=== PATIENT | female | born 1960 | race Caucasian/White ===

== ENCOUNTER 2018-02-14 10:11 | Emergency (ER) | payer OTHER ==
[2018-02-14 10:50] LABS: ADD MAN DIFF? NO
[2018-02-14 10:51] LABS: WHITE BLOOD COUNT 8.9 10^3/ul (4.8-10.8)
[2018-02-14 10:51] LABS: BASOPHILS % 0.3 % (0.0-2.0); EOSINOPHILS # 0.1 10^3/ul (0.0-0.5); EOSINOPHILS % 0.7 % (0.0-7.0); HEMATOCRIT 33.4 % (37.0-47.0); HEMOGLOBIN 10.5 g/dl (12.0-16.0); LYMPHOCYTES # 1.6 10^3/ul (0.8-2.9); MEAN CORPUSCULAR HEMOGLOBIN 27.1 pg (29.0-33.0); MEAN CORPUSCULAR HGB CONC 31.4 g/dl (32.0-37.0); MEAN CORPUSCULAR VOLUME 86.3 fl (82.0-101.0); MEAN PLATELET VOLUME 8.6 fl (7.4-10.4); MONOCYTE # 0.4 10^3/ul (0.3-0.9); MONOCYTES % 4.8 % (0.0-11.0); NEUTROPHIL # 6.6 10^3/ul (1.6-7.5); NEUTROPHILS % 74.1 % (39.0-77.0); PLATELET COUNT 422 10^3/UL (140-415); RED BLOOD COUNT 3.87 10^6/ul (4.20-5.40)
[2018-02-14] MEDS: SOD CHLORIDE 0.9% 1,000 ML IV (11:07)
[2018-02-14 11:08] LABS: ANION GAP 15 (8-16); BLOOD UREA NITROGEN 19 mg/dl (7-20); CALCIUM 8.8 mg/dl (8.4-10.2); CARBON DIOXIDE 29 mmol/L (21-31); CHLORIDE 100 mmol/L (97-110); CREATININE 1.22 mg/dl (0.44-1.00); GLUCOSE 319 mg/dl (70-220); MAGNESIUM 1.6 mg/dl (1.7-2.5); POTASSIUM 4.1 mmol/L (3.5-5.1); SODIUM 140 mmol/L (135-144)
[2018-02-14 11:30] LABS: MODE ROOM AIR; MetHgb Venous 0.2 %; Sample Type Blood venous; Site VENOUS LINE; Venous COHb 0 %; Venous Fraction OxyHgb 85.4 %; Venous Oxygen Sat 85.6 mmHG (55.0-75.0); Venous Total Hemglobin 11.3 g/dl
== END 2018-02-14 11:55 | disposition home or self-care (01) ==
LOC: E/R 10:11
DX: E11.65 Type 2 diabetes mellitus with hyperglycemia (principal); E11.22 Type 2 diabetes mellitus with diabetic chronic kidney disease; N18.9 Chronic kidney disease, unspecified; I50.9 Heart failure, unspecified; Z79.4 Long term (current) use of insulin
CPT/HCPCS: 36415; 80048; 82803; 82962; 83735; 84100; 85025; 99284-25

== ENCOUNTER 2019-01-03 14:19 | Emergency (ER) | payer MEDICARE, OTHER ==
[2019-01-03 16:55] LABS: URINE PH (Dip) POC 5.5 (5.0-8.5)
[2019-01-03 16:55] LABS: URINE BLOOD (Dip) POC Trace-intact (NEGATIVE); URINE KETONES (Dip) POC Negative (NEGATIVE); URINE LEUKOCYTE EST (Dip) POC Negative (NEGATIVE); URINE NITRITE (Dip) POC Negative (NEGATIVE); URINE TOTAL PROTEIN POC 2+ (NEGATIVE)
== END 2019-01-03 17:14 | disposition home or self-care (01) ==
LOC: FTE 17:14
DX: R30.0 Dysuria (principal); E11.9 Type 2 diabetes mellitus without complications; I11.0 Hypertensive heart disease with heart failure; I50.9 Heart failure, unspecified; Z76.0 Encounter for issue of repeat prescription; Z79.4 Long term (current) use of insulin
CPT/HCPCS: 81003; 82962; 99282

== ENCOUNTER 2019-03-24 12:47 | Inpatient (IN) | payer MEDICARE, OTHER ==
[2019-03-24 15:14] LABS: ADD MAN DIFF? NO
[2019-03-24 15:19] LABS: BASOPHILS % 0.1 % (0.0-2.0); EOSINOPHILS % 0.3 % (0.0-7.0); HEMATOCRIT 28.6 % (37.0-47.0); LYMPHOCYTES # 1.5 10^3/ul (0.8-2.9); LYMPHOCYTES % 12.4 % (15.0-51.0); MEAN CORPUSCULAR HEMOGLOBIN 25.6 pg (29.0-33.0); MEAN CORPUSCULAR HGB CONC 31.5 g/dl (32.0-37.0); MEAN CORPUSCULAR VOLUME 81.3 fl (82.0-101.0); MEAN PLATELET VOLUME 9.6 fl (7.4-10.4); MONOCYTE # 0.7 10^3/ul (0.3-0.9); MONOCYTES % 5.6 % (0.0-11.0); NEUTROPHIL # 9.6 10^3/ul (1.6-7.5); NEUTROPHILS % 80.9 % (39.0-77.0); PLATELET COUNT 278 10^3/UL (140-415); RED BLOOD COUNT 3.52 10^6/ul (4.20-5.40); RED CELL DISTRIBUTION WIDTH 13.5 % (11.5-14.5)
[2019-03-24 15:19] LABS: WHITE BLOOD COUNT 11.8 10^3/ul (4.8-10.8)
[2019-03-24] MEDS: CEFEPIME 2GM/50 ML (PMX) 50 ML IVPB (15:19)
[2019-03-24] MEDS: SODIUM CHLORIDE 0.9% 1L BAG IV* (15:19)
[2019-03-24] MEDS: ACETAMINOPHEN 325 MG TAB PO (15:19)
[2019-03-24] MEDS: morphine 4 MG/ML VIAL IV (15:21)
[2019-03-24] MEDS: ONDANSETRON 4 MG INJ IV (15:22)
[2019-03-24 15:37] LABS: INR 1.03; PROTIME 13.6 Sec (11.9-14.9); PT RATIO 1.1
[2019-03-24 15:43] LABS: ALANINE AMINOTRANSFERASE 14 IU/L (13-69); ALBUMIN 4.1 g/dl (3.3-4.9); ALBUMIN/GLOBULIN RATIO 1.13; ALKALINE PHOSPHATASE 57 IU/L (42-121); ANION GAP 10 (5-13); ASPARTATE AMINO TRANSFERASE 19 IU/L (15-46); BILIRUBIN,INDIRECT 0.3 mg/dl (0-1.1); BILIRUBIN,TOTAL 0.3 mg/dl (0.2-1.3); BLOOD UREA NITROGEN 21 mg/dl (7-20); CALCIUM 8.9 mg/dl (8.4-10.2); CARBON DIOXIDE 28 mmol/L (21-31); CHLORIDE 97 mmol/L (97-110); CREATININE 1.49 mg/dl (0.44-1.00); Estimated GFR 36 mL/min (>60); GLUCOSE 212 mg/dl (70-220); POTASSIUM 3.8 mmol/L (3.5-5.1); SODIUM 135 mmol/L (135-144); TOTAL PROTEIN 7.7 g/dl (6.1-8.1)
[2019-03-24] MEDS: VANCOMYCIN 1 GM (PMX) 250 ML IVPB (15:44)
[2019-03-24 15:52] LABS: TROPONIN-I < 0.012 ng/ml (0.000-0.120)
[2019-03-24] MEDS ORDERED: ACETAMINOPHEN 325 MG TAB PO (16:30)
[2019-03-24] MEDS ORDERED: ONDANSETRON 4 MG INJ IV ×2 (16:30→17:00)
[2019-03-24 16:51] LABS: ERYTHROCYTE SEDIMENTATION RATE 101 mm/Hr (0-30)
[2019-03-24] MEDS ORDERED: GLUCOSE GEL 15 GRAM TUBE PO ×2 (17:30)
[2019-03-24] MEDS ORDERED: VANCOMYCIN IV PER PHARMACY XX (17:30)
[2019-03-24] MEDS ORDERED: GLUCOSE GEL 15 GRAM TUBE BUCCAL (17:30)
[2019-03-24] MEDS ORDERED: DEXTROSE 50% 50 ML SYRINGE IV ×2 (17:30)
[2019-03-24] MEDS: ACCU-CHEK XX ×2 (17:30→21:47)
[2019-03-24] MEDS ORDERED: GLUCAGON 1 MG INJ IM (17:30)
[2019-03-24 17:44] LABS: LACTIC ACID 1.3 mmol/L (0.5-2.0)
[2019-03-24] MEDS: metFORMIN 500 MG TAB PO (17:47)
[2019-03-24] MEDS: INSULIN ASPART [NOVOLOG] 3 ML PEN SC ×3 (17:50→21:00)
[2019-03-24] MEDS ORDERED: INSULIN LISPRO 100 UNIT/ML VIAL SC (18:00)
[2019-03-24] MEDS: PIPER-TAZO 3.375 GM IV (PMX) 100 ML IVPB (18:21)
[2019-03-24] MEDS: HYDROCODONE/APAP (5/325) TAB PO (19:18)
[2019-03-24] MEDS: INSULIN GLARGINE [LANTus] (100 UNITS/ML) SYG SC (21:46)
[2019-03-24 21:51] LABS: LACTIC ACID 2.1 mmol/L (0.5-2.0)
[2019-03-24] MEDS: VANCOMYCIN 1 GM in 250 ML IVPB (22:18)
[2019-03-24] MEDS: MELATONIN 5 MG TABLET PO ×2 (22:21→23:47)
[2019-03-24] MEDS: ASCORBIC ACID 500 MG TAB PO ×2 (22:21→23:47)
[2019-03-24] MEDS: GABAPENTIN 300 MG CAP PO ×2 (22:22→23:47)
[2019-03-24] MEDS: SERTRALINE 50 MG TAB PO ×2 (22:22→23:30)
[2019-03-24] MEDS: SOD CHLORIDE 0.9% 500 ML IV (23:41)
[2019-03-24] MEDS: ATORVASTATIN 80 MG TAB PO (23:49)
[2019-03-25] MEDS: clonAZEPAM 0.5 MG TAB PO ×2 (00:46→08:44)
[2019-03-25] MEDS: PIPER-TAZO 3.375 GM IV (PMX) 100 ML IVPB ×4 (01:34→17:29)
[2019-03-25 03:47] LABS: ADD MAN DIFF? NO
[2019-03-25 04:05] LABS: BASOPHILS % 0.2 % (0.0-2.0); EOSINOPHILS % 0.3 % (0.0-7.0); HEMATOCRIT 25.3 % (37.0-47.0); HEMOGLOBIN 7.8 g/dl (12.0-16.0); LYMPHOCYTES # 0.7 10^3/ul (0.8-2.9); MEAN CORPUSCULAR HEMOGLOBIN 25.6 pg (29.0-33.0); MEAN CORPUSCULAR HGB CONC 30.8 g/dl (32.0-37.0); MEAN PLATELET VOLUME 9.8 fl (7.4-10.4); MONOCYTE # 0.4 10^3/ul (0.3-0.9); MONOCYTES % 4.2 % (0.0-11.0); NEUTROPHILS % 87.2 % (39.0-77.0); PLATELET COUNT 252 10^3/UL (140-415); RED BLOOD COUNT 3.05 10^6/ul (4.20-5.40); RED CELL DISTRIBUTION WIDTH 13.7 % (11.5-14.5)
[2019-03-25 04:05] LABS: WHITE BLOOD COUNT 9.2 10^3/ul (4.8-10.8)
[2019-03-25 04:10] LABS: ALANINE AMINOTRANSFERASE 24 IU/L (13-69); ALBUMIN 3.5 g/dl (3.3-4.9); ALBUMIN/GLOBULIN RATIO 1.12; ALKALINE PHOSPHATASE 56 IU/L (42-121); ANION GAP 10 (5-13); ASPARTATE AMINO TRANSFERASE 31 IU/L (15-46); BILIRUBIN,INDIRECT 0.3 mg/dl (0-1.1); BILIRUBIN,TOTAL 0.3 mg/dl (0.2-1.3); BLOOD UREA NITROGEN 23 mg/dl (7-20); CALCIUM 8.4 mg/dl (8.4-10.2); CARBON DIOXIDE 24 mmol/L (21-31); CHLORIDE 104 mmol/L (97-110); CHOL/HDL RATIO 4.9 RATIO; CHOLESTEROL 128 mg/dl (100-200); CREATININE 1.36 mg/dl (0.44-1.00); Estimated GFR 40 mL/min (>60); GLUCOSE 257 mg/dl (70-220); HDL CHOLESTEROL 26 mg/dl (37-92); LDL CHOLESTEROL,CALCULATED 78 mg/dl; MAGNESIUM 1.6 mg/dl (1.7-2.5); PHOSPHORUS 4.1 mg/dl (2.5-4.9); POTASSIUM 3.2 mmol/L (3.5-5.1); SODIUM 138 mmol/L (135-144); TOTAL PROTEIN 6.6 g/dl (6.1-8.1); TRIGLYCERIDES 119 mg/dl (0-149)
[2019-03-25 04:14] LABS: LACTIC ACID 2.1 mmol/L (0.5-2.0)
[2019-03-25] MEDS: SOD CHLORIDE 0.9% 500 ML IV ×2 (04:46→06:02)
[2019-03-25] MEDS: POTASSIUM CHLORIDE (SR) 20 MEQ TAB PO (05:25)
[2019-03-25] MEDS: ALBUTEROL/IPRATROPIUM (NEB) 3 ML AMP HHN ×2 (06:24→20:01)
[2019-03-25] MEDS: ACCU-CHEK XX ×4 (07:00→21:13)
[2019-03-25] MEDS: metFORMIN 500 MG TAB PO ×2 (08:18→17:35)
[2019-03-25] MEDS: INSULIN ASPART [NOVOLOG] 3 ML PEN SC ×7 (08:24→21:00)
[2019-03-25] MEDS: GABAPENTIN 300 MG CAP PO ×3 (08:44→21:07)
[2019-03-25] MEDS: AMLODIPINE 5 MG TAB PO (08:44)
[2019-03-25] MEDS: ASCORBIC ACID 500 MG TAB PO ×2 (08:44→21:08)
[2019-03-25] MEDS: HYDROCHLOROTHIAZIDE 25 MG TAB PO (08:44)
[2019-03-25] MEDS: SERTRALINE 50 MG TAB PO ×3 (08:44→21:06)
[2019-03-25] MEDS: ENOXAPARIN 40 MG/0.4 ML SYG SC (08:47)
[2019-03-25] MEDS: MAGNESIUM SULFATE 2 GM/50 ML 50 ML IVPB (08:54)
[2019-03-25] MEDS: VANCOMYCIN 1 GM 250 ML IVPB (10:29)
[2019-03-25 11:05] LABS: LACTIC ACID 2.3 mmol/L (0.5-2.0)
[2019-03-25 13:12] LABS: ADD MAN DIFF? NO
[2019-03-25 13:16] LABS: BASOPHILS % 0.4 % (0.0-2.0); EOSINOPHILS # 0.1 10^3/ul (0.0-0.5); HEMOGLOBIN 7.9 g/dl (12.0-16.0); LYMPHOCYTES # 0.7 10^3/ul (0.8-2.9); LYMPHOCYTES % 8.9 % (15.0-51.0); MEAN CORPUSCULAR HEMOGLOBIN 25.6 pg (29.0-33.0); MEAN CORPUSCULAR HGB CONC 30.4 g/dl (32.0-37.0); MEAN CORPUSCULAR VOLUME 84.1 fl (82.0-101.0); MEAN PLATELET VOLUME 9.9 fl (7.4-10.4); MONOCYTE # 0.5 10^3/ul (0.3-0.9); NEUTROPHIL # 6.9 10^3/ul (1.6-7.5); NEUTROPHILS % 82.9 % (39.0-77.0); PLATELET COUNT 247 10^3/UL (140-415); RED BLOOD COUNT 3.09 10^6/ul (4.20-5.40); RED CELL DISTRIBUTION WIDTH 13.6 % (11.5-14.5)
[2019-03-25 13:16] LABS: WHITE BLOOD COUNT 8.4 10^3/ul (4.8-10.8)
[2019-03-25 13:36] LABS: ANION GAP 10 (5-13); BLOOD UREA NITROGEN 17 mg/dl (7-20); CALCIUM 8.8 mg/dl (8.4-10.2); CARBON DIOXIDE 24 mmol/L (21-31); CHLORIDE 105 mmol/L (97-110); CREATININE 1.21 mg/dl (0.44-1.00); Estimated GFR 46 mL/min (>60); GLUCOSE 140 mg/dl (70-220); POTASSIUM 3.7 mmol/L (3.5-5.1); SODIUM 139 mmol/L (135-144)
[2019-03-25 14:45] LABS: HIV 1&2 ANTIBODY NEGATIVE (NEGATIVE)
[2019-03-25] MEDS: MELATONIN 5 MG TABLET PO (21:06)
[2019-03-25] MEDS: ATORVASTATIN 80 MG TAB PO (21:06)
[2019-03-25] MEDS: ACETAMINOPHEN 325 MG TAB PO (21:08)
[2019-03-25] MEDS: INSULIN GLARGINE [LANTus] (100 UNITS/ML) SYG SC (21:11)
[2019-03-26] MEDS: VANCOMYCIN 750 MG (PMX) 250 ML IVPB ×3 (00:16→22:13)
[2019-03-26] MEDS: PIPER-TAZO 3.375 GM IV (PMX) 100 ML IVPB ×5 (00:23→18:15)
[2019-03-26] MEDS: ACCU-CHEK XX ×4 (07:30→20:48)
[2019-03-26] MEDS: ACETAMINOPHEN 325 MG TAB PO ×2 (07:42→20:41)
[2019-03-26] MEDS: HYDROCHLOROTHIAZIDE 25 MG TAB PO (08:29)
[2019-03-26] MEDS: GABAPENTIN 300 MG CAP PO ×3 (08:29→20:42)
[2019-03-26] MEDS: SERTRALINE 50 MG TAB PO ×3 (08:29→20:42)
[2019-03-26] MEDS: AMLODIPINE 5 MG TAB PO (08:29)
[2019-03-26] MEDS: ASCORBIC ACID 500 MG TAB PO ×2 (08:29→20:42)
[2019-03-26] MEDS: INSULIN ASPART [NOVOLOG] 3 ML PEN SC ×7 (08:32→20:48)
[2019-03-26] MEDS: ENOXAPARIN 40 MG/0.4 ML SYG SC (08:34)
[2019-03-26] MEDS: DAKINS 0.0125%(1/40) 473 ML SOLUTION TP (09:00)
[2019-03-26] MEDS: metFORMIN 500 MG TAB PO ×2 (09:46→18:12)
[2019-03-26] MEDS ORDERED: ENOXAPARIN 40 MG/0.4 ML SYG SC (10:30)
[2019-03-26] MEDS: FUROSEMIDE 40 MG INJ IV ×2 (12:26→18:15)
[2019-03-26 12:51] LABS: LACTIC ACID 2.3 mmol/L (0.5-2.0)
[2019-03-26] MEDS: POTASSIUM CHLORIDE (SR) 20 MEQ TAB PO (18:12)
[2019-03-26] MEDS: MELATONIN 5 MG TABLET PO (20:42)
[2019-03-26] MEDS: ATORVASTATIN 80 MG TAB PO (20:42)
[2019-03-26 23:30] LABS: ADD UMIC NO; UR ASCORBIC ACID 20 mg/dL (NEGATIVE); UR BILIRUBIN (Dip) NEGATIVE (NEGATIVE); UR BLOOD (Dip) NEGATIVE (NEGATIVE); UR CLARITY CLEAR (CLEAR); UR COLOR STRAW (YELLOW); UR GLUCOSE (Dip) NEGATIVE (NEGATIVE); UR KETONES (Dip) NEGATIVE (NEGATIVE); UR LEUKOCYTE ESTERASE (Dip) NEGATIVE Leu/ul (NEGATIVE); UR NITRITE (Dip) NEGATIVE (NEGATIVE); UR TOTAL PROTEIN (Dip) NEGATIVE (NEGATIVE); UR UROBILINOGEN (Dip) NEGATIVE (NEGATIVE)
[2019-03-27] MEDS: INSULIN ASPART [NOVOLOG] 3 ML PEN SC ×9 (01:00→21:16)
[2019-03-27] MEDS: PIPER-TAZO 3.375 GM IV (PMX) 100 ML IVPB ×5 (01:04→23:12)
[2019-03-27 01:31] LABS: IMMEDIATE SPIN CROSSMATCH 1 1
[2019-03-27] MEDS: FUROSEMIDE 40 MG INJ IV (01:54)
[2019-03-27 06:04] LABS: ADD MAN DIFF? NO
[2019-03-27 06:22] LABS: WHITE BLOOD COUNT 8.1 10^3/ul (4.8-10.8)
[2019-03-27 06:22] LABS: BASOPHILS % 0.4 % (0.0-2.0); EOSINOPHILS # 0.2 10^3/ul (0.0-0.5); EOSINOPHILS % 2.5 % (0.0-7.0); HEMATOCRIT 29.8 % (37.0-47.0); HEMOGLOBIN 9.2 g/dl (12.0-16.0); LYMPHOCYTES # 1.3 10^3/ul (0.8-2.9); LYMPHOCYTES % 15.5 % (15.0-51.0); MEAN CORPUSCULAR HEMOGLOBIN 25.6 pg (29.0-33.0); MEAN CORPUSCULAR HGB CONC 30.9 g/dl (32.0-37.0); MEAN PLATELET VOLUME 9.5 fl (7.4-10.4); MONOCYTE # 0.5 10^3/ul (0.3-0.9); MONOCYTES % 6.4 % (0.0-11.0); NEUTROPHILS % 74.1 % (39.0-77.0); PLATELET COUNT 334 10^3/UL (140-415); RED BLOOD COUNT 3.59 10^6/ul (4.20-5.40); RED CELL DISTRIBUTION WIDTH 13.8 % (11.5-14.5)
[2019-03-27 06:39] LABS: ANION GAP 9 (5-13); BLOOD UREA NITROGEN 23 mg/dl (7-20); CALCIUM 9.2 mg/dl (8.4-10.2); CARBON DIOXIDE 31 mmol/L (21-31); CHLORIDE 101 mmol/L (97-110); CREATININE 1.45 mg/dl (0.44-1.00); Estimated GFR 37 mL/min (>60); GLUCOSE 154 mg/dl (70-220); POTASSIUM 3.7 mmol/L (3.5-5.1); SODIUM 141 mmol/L (135-144)
[2019-03-27] MEDS: ACCU-CHEK XX ×4 (07:00→21:17)
[2019-03-27] MEDS: ENOXAPARIN 40 MG/0.4 ML SYG SC (08:18)
[2019-03-27] MEDS ORDERED: ONDANSETRON 4 MG INJ (08:58)
[2019-03-27] MEDS ORDERED: morphine SULFATE/PF (10 MG/10 ML) INJ (08:58)
[2019-03-27] MEDS ORDERED: MIDAZOLAM 1 MG/ML 2 ML INJ (08:58)
[2019-03-27] MEDS ORDERED: LIDOCAINE 2% (SDV) 5 ML INJ (08:58)
[2019-03-27] MEDS ORDERED: PROPOFOL 0 ML (08:58)
[2019-03-27] MEDS ORDERED: METOCLOPRAMIDE 10 MG INJ (08:59)
[2019-03-27] MEDS ORDERED: BUPIVACAINE 0.5% (SDV) 30 ML INJ (08:59)
[2019-03-27] MEDS ORDERED: ETOMIDATE 20 MG INJ (09:17)
[2019-03-27] MEDS ORDERED: BUPIVACAINE 0.25% (MPF) 30 ML INJ (09:18)
[2019-03-27] MEDS ORDERED: ROCURONIUM 50 MG INJ (09:25)
[2019-03-27] MEDS ORDERED: SUGAMMADEX SODIUM 200 MG/2 ML VIAL IV (10:24)
[2019-03-27] MEDS ORDERED: PROCHLORPERAZINE 10 MG INJ IV (10:30)
[2019-03-27] MEDS ORDERED: ONDANSETRON 4 MG INJ IV (10:30)
[2019-03-27] MEDS ORDERED: MEPERIDINE 25 MG INJ IV (10:30)
[2019-03-27] MEDS ORDERED: HYDROmorphONE 1 MG/5 ML IV SYRINGE IV (10:30)
[2019-03-27] MEDS: FENTAnyl 50 MCG/ML VIAL IV ×2 (12:15→12:20)
[2019-03-27] MEDS: GABAPENTIN 300 MG CAP PO ×2 (13:45→20:59)
[2019-03-27] MEDS: SERTRALINE 50 MG TAB PO ×2 (13:45→20:59)
[2019-03-27] MEDS: HYDROCODONE/APAP (5/325) TAB PO (13:45)
[2019-03-27] MEDS: metFORMIN 500 MG TAB PO ×2 (13:46→17:34)
[2019-03-27] MEDS: DAKINS 0.0125%(1/40) 473 ML SOLUTION TP (13:48)
[2019-03-27] MEDS: HYDROCHLOROTHIAZIDE 25 MG TAB PO (14:27)
[2019-03-27] MEDS: ASCORBIC ACID 500 MG TAB PO ×2 (14:29→20:58)
[2019-03-27] MEDS: AMLODIPINE 5 MG TAB PO (14:29)
[2019-03-27] MEDS: morphine 4 MG/ML VIAL IV ×3 (15:25→23:02)
[2019-03-27] MEDS ORDERED: VANCOMYCIN 750 MG (PMX) 250 ML IVPB (16:00)
[2019-03-27] MEDS: ACETAMINOPHEN 325 MG TAB PO (20:58)
[2019-03-27] MEDS: MELATONIN 5 MG TABLET PO (20:59)
[2019-03-27] MEDS: ATORVASTATIN 80 MG TAB PO (20:59)
[2019-03-28] MEDS: HYDROCODONE/APAP (5/325) TAB PO ×3 (01:04→18:41)
[2019-03-28] MEDS: INSULIN ASPART [NOVOLOG] 3 ML PEN SC ×9 (01:10→21:00)
[2019-03-28] MEDS: PIPER-TAZO 3.375 GM IV (PMX) 100 ML IVPB ×3 (05:46→17:27)
[2019-03-28] MEDS: morphine 4 MG/ML VIAL IV ×3 (05:52→21:42)
[2019-03-28] MEDS: ACCU-CHEK XX ×4 (08:17→21:45)
[2019-03-28] MEDS: metFORMIN 500 MG TAB PO ×2 (08:17→17:27)
[2019-03-28] MEDS: GABAPENTIN 300 MG CAP PO ×3 (08:19→21:41)
[2019-03-28] MEDS: SERTRALINE 50 MG TAB PO ×3 (08:19→21:41)
[2019-03-28] MEDS: AMLODIPINE 5 MG TAB PO (08:19)
[2019-03-28] MEDS: ASCORBIC ACID 500 MG TAB PO ×2 (08:19→21:41)
[2019-03-28] MEDS: HYDROCHLOROTHIAZIDE 25 MG TAB PO (08:20)
[2019-03-28] MEDS: ENOXAPARIN 40 MG/0.4 ML SYG SC (08:24)
[2019-03-28] MEDS: clonAZEPAM 0.5 MG TAB PO (08:28)
[2019-03-28] MEDS: DAKINS 0.0125%(1/40) 473 ML SOLUTION TP (08:44)
[2019-03-28] MEDS: METOPROLOL 25 MG TAB PO ×2 (12:53→21:41)
[2019-03-28] MEDS: ATORVASTATIN 80 MG TAB PO (21:41)
[2019-03-28] MEDS: MELATONIN 5 MG TABLET PO (21:41)
[2019-03-28] MEDS: ACETAMINOPHEN 325 MG TAB PO (21:46)
[2019-03-29] MEDS: PIPER-TAZO 3.375 GM IV (PMX) 100 ML IVPB ×2 (00:26→05:47)
[2019-03-29] MEDS: HYDROCODONE/APAP (5/325) TAB PO (00:28)
[2019-03-29] MEDS: INSULIN ASPART [NOVOLOG] 3 ML PEN SC ×9 (00:39→20:39)
[2019-03-29] MEDS: morphine 4 MG/ML VIAL IV (04:00)
[2019-03-29 06:30] LABS: ADD MAN DIFF? NO
[2019-03-29 06:34] LABS: BASOPHILS % 0.3 % (0.0-2.0); EOSINOPHILS % 0.4 % (0.0-7.0); HEMATOCRIT 25.7 % (37.0-47.0); HEMOGLOBIN 7.8 g/dl (12.0-16.0); LYMPHOCYTES # 1.2 10^3/ul (0.8-2.9); LYMPHOCYTES % 11.8 % (15.0-51.0); MEAN CORPUSCULAR HEMOGLOBIN 25.7 pg (29.0-33.0); MEAN CORPUSCULAR HGB CONC 30.4 g/dl (32.0-37.0); MEAN CORPUSCULAR VOLUME 84.8 fl (82.0-101.0); MEAN PLATELET VOLUME 9.4 fl (7.4-10.4); MONOCYTE # 0.4 10^3/ul (0.3-0.9); MONOCYTES % 3.4 % (0.0-11.0); NEUTROPHIL # 8.6 10^3/ul (1.6-7.5); NEUTROPHILS % 81.8 % (39.0-77.0); PLATELET COUNT 357 10^3/UL (140-415); RED BLOOD COUNT 3.03 10^6/ul (4.20-5.40); RED CELL DISTRIBUTION WIDTH 14.1 % (11.5-14.5)
[2019-03-29 06:34] LABS: WHITE BLOOD COUNT 10.5 10^3/ul (4.8-10.8)
[2019-03-29 07:06] LABS: MAGNESIUM 1.5 mg/dl (1.7-2.5)
[2019-03-29 07:10] LABS: ANION GAP 10 (5-13); BLOOD UREA NITROGEN 35 mg/dl (7-20); CALCIUM 8.2 mg/dl (8.4-10.2); CARBON DIOXIDE 31 mmol/L (21-31); CHLORIDE 96 mmol/L (97-110); CREATININE 1.87 mg/dl (0.44-1.00); Estimated GFR 28 mL/min (>60); GLUCOSE 249 mg/dl (70-220); POTASSIUM 4.3 mmol/L (3.5-5.1); SODIUM 137 mmol/L (135-144)
[2019-03-29] MEDS: ACCU-CHEK XX ×4 (08:31→20:35)
[2019-03-29] MEDS: SERTRALINE 50 MG TAB PO ×3 (08:32→20:34)
[2019-03-29] MEDS: FUROSEMIDE 40 MG TAB PO (08:32)
[2019-03-29] MEDS: GABAPENTIN 300 MG CAP PO ×3 (08:32→20:34)
[2019-03-29] MEDS: METOPROLOL 25 MG TAB PO ×2 (08:33→20:35)
[2019-03-29] MEDS: ASCORBIC ACID 500 MG TAB PO ×2 (08:33→20:34)
[2019-03-29] MEDS: AMLODIPINE 5 MG TAB PO (08:34)
[2019-03-29] MEDS: ENOXAPARIN 40 MG/0.4 ML SYG SC (08:49)
[2019-03-29] MEDS: DAKINS 0.0125%(1/40) 473 ML SOLUTION TP (09:00)
[2019-03-29] MEDS: MAGNESIUM SULFATE 3 GM in DEXTROSE 5% 100 ML IVPB (14:02)
[2019-03-29 19:39] LABS: CREATININE,URINE RANDOM 153.29 mg/dl (20-320); PROTEIN/CREAT RATIO 0.76 RATIO
[2019-03-29] MEDS: ATORVASTATIN 80 MG TAB PO (20:34)
[2019-03-29] MEDS: MELATONIN 5 MG TABLET PO (20:35)
[2019-03-29] MEDS: INSULIN GLARGINE [LANTus] (100 UNITS/ML) SYG SC (20:39)
[2019-03-29 20:52] LABS: SODIUM,URINE RANDOM < 13 mmol/L (30-90)
[2019-03-29] MEDS: clonAZEPAM 0.5 MG TAB PO (22:55)
[2019-03-29] MEDS: ACETAMINOPHEN 325 MG TAB PO (22:55)
[2019-03-29] MEDS ORDERED: ONDANSETRON 4 MG INJ IV (23:00)
[2019-03-30] MEDS ORDERED: INSULIN ASPART [NOVOLOG] 3 ML PEN SC (01:00)
[2019-03-30 06:19] LABS: CREATINE KINASE 250 IU/L (23-200)
[2019-03-30 06:19] LABS: URIC ACID 8.2 mg/dl (3.1-7.9)
[2019-03-30 06:20] LABS: ALKALINE PHOSPHATASE 182 IU/L (42-121); ANION GAP 9 (5-13); BILIRUBIN,INDIRECT 0.2 mg/dl (0-1.1); BILIRUBIN,TOTAL 0.2 mg/dl (0.2-1.3); BLOOD UREA NITROGEN 43 mg/dl (7-20); CARBON DIOXIDE 31 mmol/L (21-31); CHLORIDE 97 mmol/L (97-110); Estimated GFR 31 mL/min (>60); GLUCOSE 252 mg/dl (70-220); POTASSIUM 3.5 mmol/L (3.5-5.1); SODIUM 137 mmol/L (135-144); TOTAL PROTEIN 6.3 g/dl (6.1-8.1)
[2019-03-30 06:24] LABS: MAGNESIUM 1.9 mg/dl (1.7-2.5)
[2019-03-30 06:24] LABS: PHOSPHORUS 4.3 mg/dl (2.5-4.9)
[2019-03-30 06:57] LABS: ALANINE AMINOTRANSFERASE 1358 IU/L (13-69)
[2019-03-30] MEDS: ACCU-CHEK XX ×4 (07:00→21:00)
[2019-03-30 07:42] LABS: ASPARTATE AMINO TRANSFERASE 1613 IU/L (15-46)
[2019-03-30] MEDS: INSULIN ASPART [NOVOLOG] 3 ML PEN SC ×7 (09:02→22:03)
[2019-03-30] MEDS: ASCORBIC ACID 500 MG TAB PO (09:04)
[2019-03-30] MEDS: ENOXAPARIN 40 MG/0.4 ML SYG SC (09:04)
[2019-03-30] MEDS: AMLODIPINE 5 MG TAB PO (09:05)
[2019-03-30] MEDS: GABAPENTIN 300 MG CAP PO (09:05)
[2019-03-30] MEDS: NACL 0.9% 3 ML SYG IV (09:05)
[2019-03-30] MEDS: METOPROLOL 25 MG TAB PO ×2 (09:05→21:37)
[2019-03-30] MEDS: clonAZEPAM 0.5 MG TAB PO ×2 (09:15→21:41)
[2019-03-30] MEDS: SERTRALINE 50 MG TAB PO ×3 (09:27→21:36)
[2019-03-30] MEDS: ALBUMIN HUMAN 25% 100 ML IV (11:55)
[2019-03-30] MEDS: SOD CHLORIDE 0.9% 1,000 ML IV ×2 (11:56→23:00)
[2019-03-30] MEDS: INSULIN GLARGINE [LANTus] (100 UNITS/ML) SYG SC ×2 (13:25→22:03)
[2019-03-30] MEDS: GABAPENTIN 100 MG CAP PO ×2 (13:28→21:36)
[2019-03-30] MEDS: ALBUTEROL/IPRATROPIUM (NEB) 3 ML AMP HHN (13:50)
[2019-03-30] MEDS ORDERED: INSULIN GLARGINE [LANTus] (100 UNITS/ML) SYG SC (21:00)
[2019-03-30] MEDS: MELATONIN 5 MG TABLET PO (21:36)
[2019-03-30] MEDS: ACETAMINOPHEN 325 MG TAB PO (22:29)
[2019-03-31 05:44] LABS: ABNORMAL IP MESSAGE 1; HEMATOCRIT 25.9 % (37.0-47.0); HEMOGLOBIN 7.8 g/dl (12.0-16.0); MEAN CORPUSCULAR HEMOGLOBIN 25.2 pg (29.0-33.0); MEAN CORPUSCULAR HGB CONC 30.1 g/dl (32.0-37.0); MEAN CORPUSCULAR VOLUME 83.8 fl (82.0-101.0); MEAN PLATELET VOLUME 9.9 fl (7.4-10.4); PLATELET COUNT 370 10^3/UL (140-415); RED BLOOD COUNT 3.09 10^6/ul (4.20-5.40); RED CELL DISTRIBUTION WIDTH 13.9 % (11.5-14.5)
[2019-03-31 05:44] LABS: WHITE BLOOD COUNT 11.5 10^3/ul (4.8-10.8)
[2019-03-31 06:01] LABS: ALANINE AMINOTRANSFERASE 890 IU/L (13-69); ALBUMIN 3.4 g/dl (3.3-4.9); ALKALINE PHOSPHATASE 195 IU/L (42-121); ASPARTATE AMINO TRANSFERASE 560 IU/L (15-46); BILIRUBIN,INDIRECT 0.2 mg/dl (0-1.1); BILIRUBIN,TOTAL 0.2 mg/dl (0.2-1.3); TOTAL PROTEIN 6.4 g/dl (6.1-8.1)
[2019-03-31 06:05] LABS: ANION GAP 8 (5-13); BLOOD UREA NITROGEN 37 mg/dl (7-20); CALCIUM 8.6 mg/dl (8.4-10.2); CARBON DIOXIDE 30 mmol/L (21-31); CHLORIDE 101 mmol/L (97-110); CREATININE 1.15 mg/dl (0.44-1.00); Estimated GFR 49 mL/min (>60); GLUCOSE 251 mg/dl (70-220); POTASSIUM 3.3 mmol/L (3.5-5.1); SODIUM 139 mmol/L (135-144)
[2019-03-31 06:19] LABS: ADD MAN DIFF? YES; POSITIVE DIFF @See below
[2019-03-31] MEDS: SOD CHLORIDE 0.9% 1,000 ML IV (06:26)
[2019-03-31 07:46] LABS: ANISOCYTOSIS 2+ (0-0); BAND NEUTROPHILS #M 1.2 10^3/ul (0.0-0.6); BAND NEUTROPHILS % (M) 11 % (0-4); EOSINOPHILS % (M) 2 % (0-7); GIANT THROMBO% (M) 1 % (0-0); HYPOCHROMASIA 2+ (0-0); LYMPHOCYTES % (M) 9 % (15-51); METAMYELOCYTES #M 0.2 10^3/ul (0.0-0.0); METAMYELOCYTES %M 2 % (0-0); MICROCYTOSIS 2+ (0-0); MONOCYTE #M 0.1 10^3/ul (0.3-0.9); MONOCYTES % (M) 1 % (0-11); PLATELET ESTIMATE NORMAL; POIKILOCYTOSIS 1+ (0-0); POLYCHROMASIA 1+ (0-0); SEG NEUT #M 8.8 10^3/ul (1.6-7.5); SEGMENTED NEUTROPHILS (M) % 75 % (39-77); SMUDGE%M 2 % (0-0)
[2019-03-31] MEDS ORDERED: INSULIN GLARGINE [LANTus] (100 UNITS/ML) SYG SC (08:00)
[2019-03-31] MEDS: ACCU-CHEK XX ×4 (08:25→21:03)
[2019-03-31] MEDS: INSULIN GLARGINE [LANTus] (100 UNITS/ML) SYG SC ×2 (08:28→21:02)
[2019-03-31] MEDS: INSULIN ASPART [NOVOLOG] 3 ML PEN SC ×7 (08:28→21:02)
[2019-03-31] MEDS: POTASSIUM CHLORIDE (SR) 20 MEQ TAB PO (09:44)
[2019-03-31] MEDS: METOPROLOL 25 MG TAB PO ×2 (09:45→20:53)
[2019-03-31] MEDS: GABAPENTIN 100 MG CAP PO ×3 (09:45→20:53)
[2019-03-31] MEDS: AMLODIPINE 5 MG TAB PO (09:45)
[2019-03-31] MEDS: SERTRALINE 50 MG TAB PO ×3 (09:45→20:53)
[2019-03-31] MEDS: ACETAMINOPHEN 325 MG TAB PO (09:46)
[2019-03-31] MEDS: ENOXAPARIN 40 MG/0.4 ML SYG SC (09:48)
[2019-03-31] MEDS: ALBUTEROL/IPRATROPIUM (NEB) 3 ML AMP HHN (11:55)
[2019-03-31] MEDS: CEFTRIAXONE 1 GM/50 ML (PMX) 50 ML IVPB (12:16)
[2019-03-31 13:15] LABS: ADD UMIC YES; UR ASCORBIC ACID 40 mg/dL (NEGATIVE); UR BILIRUBIN (Dip) NEGATIVE (NEGATIVE); UR BLOOD (Dip) 1+ mg/dL (NEGATIVE); UR CLARITY SLIGHTLY CLOUDY (CLEAR); UR COLOR YELLOW (YELLOW); UR GLUCOSE (Dip) 1+ mg/dL (NEGATIVE); UR KETONES (Dip) NEGATIVE (NEGATIVE); UR LEUKOCYTE ESTERASE (Dip) 1+ Leu/ul (NEGATIVE); UR NITRITE (Dip) NEGATIVE (NEGATIVE); UR RBC 16 /HPF (0-5); UR SPECIFIC GRAVITY (Dip) 1.015 (1.003-1.030); UR SQUAMOUS EPITHELIAL CELL FEW /HPF (FEW); UR TOTAL PROTEIN (Dip) 2+ mg/dl (NEGATIVE); UR UROBILINOGEN (Dip) NEGATIVE (NEGATIVE); UR WBC 10 /HPF (0-5)
[2019-03-31] MEDS: clonAZEPAM 0.5 MG TAB PO (20:53)
[2019-03-31] MEDS: MELATONIN 5 MG TABLET PO (20:53)
[2019-04-01] MEDS: ACCU-CHEK XX ×2 (07:00→11:30)
[2019-04-01] MEDS: INSULIN GLARGINE [LANTus] (100 UNITS/ML) SYG SC (08:11)
[2019-04-01] MEDS: INSULIN ASPART [NOVOLOG] 3 ML PEN SC ×4 (08:12→13:10)
[2019-04-01] MEDS: ENOXAPARIN 40 MG/0.4 ML SYG SC (08:14)
[2019-04-01 08:19] LABS: ABNORMAL IP MESSAGE 1; HEMATOCRIT 25.1 % (37.0-47.0); HEMOGLOBIN 7.6 g/dl (12.0-16.0); MEAN CORPUSCULAR HEMOGLOBIN 25.5 pg (29.0-33.0); MEAN CORPUSCULAR HGB CONC 30.3 g/dl (32.0-37.0); MEAN CORPUSCULAR VOLUME 84.2 fl (82.0-101.0); MEAN PLATELET VOLUME 9.8 fl (7.4-10.4); NUCLEATED RED BLOOD CELLS% 0.4 /100WBC (0.0-0.0); PLATELET COUNT 377 10^3/UL (140-415); RED BLOOD COUNT 2.98 10^6/ul (4.20-5.40); RED CELL DISTRIBUTION WIDTH 13.9 % (11.5-14.5)
[2019-04-01 08:19] LABS: WHITE BLOOD COUNT 10.8 10^3/ul (4.8-10.8)
[2019-04-01 08:22] LABS: ADD MAN DIFF? YES; POSITIVE DIFF @See below
[2019-04-01 08:44] LABS: ALANINE AMINOTRANSFERASE 689 IU/L (13-69); ALBUMIN 3.2 g/dl (3.3-4.9); ALKALINE PHOSPHATASE 193 IU/L (42-121); ANION GAP 7 (5-13); ASPARTATE AMINO TRANSFERASE 244 IU/L (15-46); BILIRUBIN,INDIRECT 0.2 mg/dl (0-1.1); BILIRUBIN,TOTAL 0.2 mg/dl (0.2-1.3); BLOOD UREA NITROGEN 21 mg/dl (7-20); CALCIUM 8.6 mg/dl (8.4-10.2); CARBON DIOXIDE 29 mmol/L (21-31); CHLORIDE 106 mmol/L (97-110); Estimated GFR 57 mL/min (>60); GLUCOSE 124 mg/dl (70-220); POTASSIUM 3.8 mmol/L (3.5-5.1); SODIUM 142 mmol/L (135-144)
[2019-04-01 09:40] LABS: ANISOCYTOSIS 2+ (0-0); BAND NEUTROPHILS #M 0.4 10^3/ul (0.0-0.6); BAND NEUTROPHILS % (M) 4 % (0-4); EOSINOPHILS % (M) 3 % (0-7); LYMPHOCYTES #M 1.4 10^3/ul (0.8-2.9); LYMPHOCYTES % (M) 13 % (15-51); METAMYELOCYTES #M 0.1 10^3/ul (0.0-0.0); METAMYELOCYTES %M 1 % (0-0); MICROCYTOSIS 2+ (0-0); MONOCYTE #M 0.4 10^3/ul (0.3-0.9); MONOCYTES % (M) 4 % (0-11); MYELOCYTES #M 0.4 10^3/ul (0.0-0.0); MYELOCYTES % (M) 4 % (0-0); OVALOCYTES 1+ (0-0); PLATELET ESTIMATE NORMAL; POIKILOCYTOSIS 1+ (0-0); POLYCHROMASIA 3+ (0-0); REACTIVE LYMPHOCYTES #M 0.1 10^3/ul (0.0-0.0); REACTIVE LYMPHOCYTES% (M) 1 % (0-0); SEG NEUT #M 7.6 10^3/ul (1.6-7.5); SEGMENTED NEUTROPHILS (M) % 70 % (39-77); SMUDGE%M 1 % (0-0)
[2019-04-01] MEDS: GABAPENTIN 100 MG CAP PO ×2 (09:47→12:32)
[2019-04-01] MEDS: SERTRALINE 50 MG TAB PO ×2 (09:47→12:32)
[2019-04-01] MEDS: AMLODIPINE 5 MG TAB PO (09:47)
[2019-04-01] MEDS: METOPROLOL 25 MG TAB PO (09:48)
[2019-04-01] MEDS: CEFTRIAXONE 1 GM/50 ML (PMX) 50 ML IVPB (12:32)
== END 2019-04-01 15:40 | DRG 853 ==
LOC: TEL 03-27 13:01 → 2NE 03-29 21:10 → E/R 12:47 → TEL 03-27 13:37 → 2NE 16:04
PROC: 0Y6H0Z1 Detachment at Right Lower Leg, High, Open Approach (ICD-10-PCS; principal; 2019-03-27 09:00)
PROC: 0KBV0ZZ Excision of Right Foot Muscle, Open Approach (ICD-10-PCS; 2019-03-27 09:33)
DX: A41.9 Sepsis, unspecified organism (principal); I50.33 Acute on chronic diastolic (congestive) heart failure; T87.43 Infection of amputation stump, right lower extremity; Z68.41 Body mass index [BMI] 40.0-44.9, adult; M86.671 Other chronic osteomyelitis, right ankle and foot; L97.516 Non-pressure chronic ulcer of other part of right foot with bone involvement without evidence of necrosis; I13.0 Hypertensive heart and chronic kidney disease with heart failure and stage 1 through stage 4 chronic kidney disease, or unspecified chronic kidney disease; N17.9 Acute kidney failure, unspecified; N39.0 Urinary tract infection, site not specified; R65.20 Severe sepsis without septic shock; E66.01 Morbid (severe) obesity due to excess calories; F41.9 Anxiety disorder, unspecified; E11.69 Type 2 diabetes mellitus with other specified complication; E11.610 Type 2 diabetes mellitus with diabetic neuropathic arthropathy; E11.42 Type 2 diabetes mellitus with diabetic polyneuropathy; F12.90 Cannabis use, unspecified, uncomplicated; E11.51 Type 2 diabetes mellitus with diabetic peripheral angiopathy without gangrene; E11.621 Type 2 diabetes mellitus with foot ulcer; E11.65 Type 2 diabetes mellitus with hyperglycemia; N18.3 Chronic kidney disease, stage 3 (moderate); E11.21 Type 2 diabetes mellitus with diabetic nephropathy; R74.8 Abnormal levels of other serum enzymes; E78.5 Hyperlipidemia, unspecified; D63.8 Anemia in other chronic diseases classified elsewhere; Z79.4 Long term (current) use of insulin; Z89.512 Acquired absence of left leg below knee; Y83.5 Amputation of limb(s) as the cause of abnormal reaction of the patient, or of later complication, without mention of misadventure at the time of the procedure
CPT/HCPCS: 36430; 71045; 73610-RT; 73718; 76775; 80048; 80053; 80061; 80076; 81001; 81003; 82550; 82570; 82962; 83036; 83605; 83735; 84100; 84300; 84443; 84484; 84560; 85025; 85610; 85651; 85730; 86140; 86703; 86850; 86900; 86901; 86920; 87040-91; 87070; 87081; 87086; 88307; 93005; 93306; 93922; 94640; 94664; 96374; 96375; 99285-25